=== PATIENT | female | born 1960 | race Caucasian/White ===

== ENCOUNTER → 2019-09-12 | Outpatient (CLI) | payer OTHER ==
[~2019-09-12] MED LIST: AMOXICILLIN500 M2 PO; ATIVAN0.5 MG PO; CYMBALTA60 MG PO; HUMALOG100 U/ML SC; LANTUS100 U/ML SC; METFORMIN500 MG PO; NAPROSYN500 MG PO; REXULTI2 MG PO; TOPROL XL200 MG PO; ZALEPLON10 MG PO; ZITHROMAX Z PA250 MG PO; ZOCOR20 MG PO; [UNRECOGNIZED DRUG - OTHER] PO
== END | disposition home or self-care (01) ==
LOC: LAB 08:53
DX: E11.65 Type 2 diabetes mellitus with hyperglycemia (principal)

== ENCOUNTER → 2019-09-13 | Outpatient (CLI) | payer OTHER | END | disposition home or self-care (01) | LOC: LAB 08:55 | DX: E11.65 Type 2 diabetes mellitus with hyperglycemia (principal) ==

== ENCOUNTER → 2019-09-14 | Outpatient (CLI) | payer OTHER ==
[2019-09-14 09:45] LABS: CHLORIDE 101 mmol/L (98-107); POTASSIUM 3.8 mmol/L (3.5-5.1); SODIUM 135 mmol/L (136-145)
[2019-09-14 10:00] LABS: ALKALINE PHOSPHATASE 99 U/L (45-117); BUN 8 mg/dl (7-24); CHOLESTEROL 130 mg/dL (<200); CREATININE 0.67 mg/dL (0.55-1.02); FREE T4 1.06 ng/dl (0.76-1.46); HDL CHOLESTEROL 43 mg/dl (40-60); LDL CHOLESTEROL 47 mg/dL (9-159); SGOT/AST 36 IU/L (3-35); SGPT/ALT 60 U/L (12-78); TOTAL PROTEIN 7.8 gm/dL (6.4-8.2); TRIGLYCERIDES 198 mg/dl (<150); VLDL CHOLESTEROL 40 mg/dL (6-40)
[2019-09-17 13:07] LABS: ALDOSTERONE/RENIN RATIO 52.1 (0.0-30.0); RENIN ACTIVITY (PLASMA) 0.361 ng/mL/hr (0.167-5.380)
[2019-09-17 19:07] LABS: METANEPHRINE, PLASMA <10 pg/mL (0-62); NORMETANEPHRINE, PLASMA 33 pg/mL (0-145)
== END | disposition home or self-care (01) ==
LOC: LAB 08:39
PROVIDERS: Internal Medicine Endocrinology, Diabetes & Metabolism
DX: E03.9 Hypothyroidism, unspecified (principal); E11.65 Type 2 diabetes mellitus with hyperglycemia; E55.9 Vitamin D deficiency, unspecified

== ENCOUNTER → 2019-11-27 | Outpatient (CLI) | payer OTHER ==
[2019-12-03 04:08] LABS: 24 HR CREATININE URINE 1496 mg/24 hr (.); CORTISOL, FREE, UG/24HR, URINE 26 ug/24 hr (.); CREATININE, URINE 63 mg/dL (.)
[2019-12-03 10:38] LABS: URINE VOLUME 2375 mL
[2019-12-03 10:39] LABS: CORTISOL, FREE URINE 1.1
== END | disposition home or self-care (01) ==
LOC: LAB 15:34
PROVIDERS: Internal Medicine Endocrinology, Diabetes & Metabolism
DX: E11.65 Type 2 diabetes mellitus with hyperglycemia (principal)

== ENCOUNTER 2019-12-23 15:42 | Emergency (ER) | payer OTHER ==
[~2019-12-23] VITALS: Ht 157.4 cm; Wt 81.2 kg
[2019-12-23 16:44] LABS: BASO # 0.1 10*3/uL (0.0-0.1); BASO % 0.6 % (0.0-1.0); EOS # 0.1 10*3/uL (0.0-0.4); EOS % 0.8 % (1.0-4.0); HEMATOCRIT 45.3 % (37.0-47.0); HEMOGLOBIN 15.3 g/dl (12.0-16.0); LYMPH # 2.4 10*3/uL (1.3-4.4); LYMPH % 30.7 % (27.0-41.0); MEAN CELL VOLUME 88.5 fl (81.0-99.0); MEAN CORPUSCULAR HGB 29.9 pg (27.0-31.0); MEAN CORPUSCULAR HGB CONC 33.8 g/dl (33.0-37.0); MEAN PLATELET VOLUME 11.9 fl (9.6-12.3); MONO # 0.4 10*3/uL (0.1-1.0); MONO % 5.4 % (3.0-9.0); NEUT % 62.2 % (47.0-73.0); PLATELET COUNT AUTOMATED 168 10*3/uL (130-400); RED BLOOD COUNT 5.12 10*6/uL (4.10-5.10); RED CELL DISTRI WIDTH 12.4 % (0-14.5)
[2019-12-23 16:53] LABS: INTERNATIONAL NORM RATIO 0.9 (2.0-3.5)
[2019-12-23 17:09] LABS: ALBUMIN 4.1 gm/dl (3.1-4.5); ALKALINE PHOSPHATASE 84 U/L (45-117); BUN 10 mg/dl (7-24); CHLORIDE 103 mmol/L (98-107); CREATININE 0.78 mg/dL (0.55-1.02); POTASSIUM 3.7 mmol/L (3.5-5.1); SGOT/AST 24 IU/L (3-35); SGPT/ALT 37 U/L (12-78); SODIUM 138 mmol/L (136-145); TOTAL PROTEIN 7.8 gm/dL (6.4-8.2); TROPONIN I 0.044 ng/ml (<0.045)
[2019-12-23 18:19] LABS: BILIRUBIN 1+ (NEGATIVE); BLOOD TRACE-LYSED (NEGATIVE); CLARITY SL CLOUDY (CLEAR); COLOR YELLOW (YELLOW); GLUCOSE 3+ (NEGATIVE); KETONE 1+ (NEGATIVE); LEUKO ESTERASE NEGATIVE (NEGATIVE); NITRITE NEGATIVE (NEGATIVE); SPECIFIC GRAVITY 1.025 (1.005-1.030); UROBILINOGEN 0.2 E.U./dl (0.2-1.0)
[2019-12-23 18:20] LABS: MUCOUS 1+; RBC 0-2 rbc/hpf (0-2); WBC 0-2 wbc/hpf (0-5)
[2019-12-23 18:30] VITALS: BP 159/54
== END 2019-12-23 20:00 | disposition home or self-care (01) ==
LOC: ED 15:42
PROVIDERS: Physician Assistant
DX: E11.65 Type 2 diabetes mellitus with hyperglycemia (principal); R00.2 Palpitations; H53.8 Other visual disturbances; I10 Essential (primary) hypertension; E78.00 Pure hypercholesterolemia, unspecified; E11.9 Type 2 diabetes mellitus without complications; Z88.6 Allergy status to analgesic agent; Z88.1 Allergy status to other antibiotic agents; Z79.899 Other long term (current) drug therapy; Z91.041 Radiographic dye allergy status; Z79.4 Long term (current) use of insulin

== ENCOUNTER → 2020-11-10 | Outpatient (CLI) | payer OTHER | END | disposition home or self-care (01) | LOC: COVID19 15:06 | PROVIDERS: ATTEND Nurse Practitioner Family | DX: R09.81 Nasal congestion (principal); Z20.828 Contact with and (suspected) exposure to other viral communicable diseases ==

== ENCOUNTER 2021-09-03 04:07 | Emergency (ER) | payer OTHER ==
[~2021-09-03] VITALS: Ht 157.4 cm; Wt 83.5 kg
[2021-09-03 05:33] LABS: ALBUMIN 3.6 gm/dl (3.1-4.5); ALKALINE PHOSPHATASE 80 U/L (45-117); BUN 15 mg/dl (7-24); CHLORIDE 102 mmol/L (98-107); CREATININE 0.63 mg/dL (0.55-1.02); POTASSIUM 3.7 mmol/L (3.5-5.1); SGOT/AST 29 IU/L (3-35); SGPT/ALT 43 U/L (12-78); SODIUM 136 mmol/L (136-145); TOTAL PROTEIN 7.1 gm/dL (6.4-8.2)
[2021-09-03 06:02] LABS: BASO % 0.3 % (0.0-1.0); EOS # 0.1 10*3/uL (0.0-0.4); EOS % 1.9 % (1.0-4.0); HEMATOCRIT 40.3 % (37.0-47.0); LYMPH # 2.2 10*3/uL (1.3-4.4); LYMPH % 37.8 % (27.0-41.0); MEAN CELL VOLUME 91.2 fl (81.0-99.0); MEAN CORPUSCULAR HGB 30.5 pg (27.0-31.0); MEAN CORPUSCULAR HGB CONC 33.5 g/dl (33.0-37.0); MEAN PLATELET VOLUME 11.9 fl (9.6-12.3); MONO # 0.5 10*3/uL (0.1-1.0); MONO % 7.8 % (3.0-9.0); NEUT % 50.8 % (47.0-73.0); PLATELET COUNT AUTOMATED 152 10*3/uL (130-400); RED BLOOD COUNT 4.42 10*6/uL (4.10-5.10); RED CELL DISTRI WIDTH 12.8 % (0-14.5); WHITE BLOOD COUNT 5.9 10*3/uL (4.8-10.8)
[2021-09-03 07:38] VITALS: BP 147/56
== END 2021-09-03 08:49 | disposition home or self-care (01) ==
LOC: ED 04:07
PROVIDERS: Emergency Medicine
DX: M79.604 Pain in right leg (principal); M79.605 Pain in left leg; Z91.041 Radiographic dye allergy status; Z88.6 Allergy status to analgesic agent; Z88.1 Allergy status to other antibiotic agents; Z79.899 Other long term (current) drug therapy

== ENCOUNTER 2021-10-07 13:54 | Emergency (ER) | payer OTHER ==
[~2021-10-07] VITALS: Wt 83.9 kg
[2021-10-07 14:10] VITALS: BP 153/76
[2021-10-07] MEDS ORDERED: AMOXICILLIN500 M2 PO (14:29)
== END 2021-10-07 14:39 | disposition home or self-care (01) ==
LOC: ED 13:54
DX: J02.9 Acute pharyngitis, unspecified (principal); Z91.041 Radiographic dye allergy status; Z88.6 Allergy status to analgesic agent; Z88.1 Allergy status to other antibiotic agents; Z79.899 Other long term (current) drug therapy

== ENCOUNTER 2021-10-25 12:46 | Emergency (ER) | payer OTHER ==
[~2021-10-25] VITALS: Ht 157.4 cm; Wt 87.1 kg
[2021-10-25 12:53] VITALS: BP 126/62
[2021-10-25 13:52] LABS: BASO % 0.3 % (0.0-1.0); EOS % 0.3 % (1.0-4.0); HEMATOCRIT 42.8 % (37.0-47.0); LYMPH # 1.2 10*3/uL (1.3-4.4); LYMPH % 33.8 % (27.0-41.0); MEAN CELL VOLUME 89.4 fl (81.0-99.0); MEAN CORPUSCULAR HGB 30.1 pg (27.0-31.0); MEAN CORPUSCULAR HGB CONC 33.6 g/dl (33.0-37.0); MEAN PLATELET VOLUME 12.1 fl (9.6-12.3); MONO # 0.4 10*3/uL (0.1-1.0); NEUT # 1.9 10*3/uL (2.3-7.9); NEUT % 54.3 % (47.0-73.0); PLATELET COUNT AUTOMATED 119 10*3/uL (130-400); RED BLOOD COUNT 4.79 10*6/uL (4.10-5.10); RED CELL DISTRI WIDTH 12.7 % (0-14.5); WHITE BLOOD COUNT 3.6 10*3/uL (4.8-10.8)
[2021-10-25 14:05] LABS: ALBUMIN 3.7 gm/dl (3.1-4.5); ALKALINE PHOSPHATASE 80 U/L (45-117); BUN 8 mg/dl (7-24); CHLORIDE 100 mmol/L (98-107); CREATININE 0.68 mg/dL (0.55-1.02); POTASSIUM 3.4 mmol/L (3.5-5.1); SGOT/AST 65 IU/L (3-35); SGPT/ALT 92 U/L (12-78); SODIUM 136 mmol/L (136-145); TOTAL PROTEIN 7.6 gm/dL (6.4-8.2)
== END 2021-10-25 18:35 | disposition home or self-care (01) ==
LOC: ED 12:46
PROVIDERS: Internal Medicine
DX: U07.1 COVID-19 (principal)

== ENCOUNTER → 2021-12-06 | Outpatient (CLI) | payer OTHER | END | disposition home or self-care (01) | LOC: MAMMO 10-31 14:30 → US 11-28 15:00 → MAMMO 12:34 | PROVIDERS: ATTEND Nurse Practitioner Family | DX: R92.1 Mammographic calcification found on diagnostic imaging of breast (principal); R59.0 Localized enlarged lymph nodes; N63.20 Unspecified lump in the left breast, unspecified quadrant ==

== ENCOUNTER 2022-01-18 16:57 | Emergency (ER) | payer OTHER ==
[~2022-01-18] VITALS: Ht 157.4 cm; Wt 88.5 kg
[2022-01-18 21:00] VITALS: BP 135/70
[2022-01-18] MEDS ORDERED: PREDNISONE20 M1 PO (21:32)
[2022-01-18] MEDS ORDERED: METHOCARBAMOL500 M1 PO (21:32)
== END 2022-01-18 22:05 | disposition home or self-care (01) ==
LOC: ED 16:57
DX: M54.42 Lumbago with sciatica, left side (principal); Z91.041 Radiographic dye allergy status; Z88.8 Allergy status to other drugs, medicaments and biological substances; Z88.1 Allergy status to other antibiotic agents; Z79.899 Other long term (current) drug therapy; Z98.890 Other specified postprocedural states; Z90.49 Acquired absence of other specified parts of digestive tract; Z98.51 Tubal ligation status

== ENCOUNTER → 2022-03-06 | Outpatient (CLI) | payer OTHER ==
[~2022-03-06] MED LIST changes: +METHOCARBAMOL500 M1 PO; +PREDNISONE20 M1 PO
== END | disposition home or self-care (01) ==
LOC: US 14:22
PROVIDERS: ATTEND Nurse Practitioner Family
DX: M71.22 Synovial cyst of popliteal space [Baker], left knee (principal); R25.2 Cramp and spasm; M79.604 Pain in right leg; E11.65 Type 2 diabetes mellitus with hyperglycemia; M54.16 Radiculopathy, lumbar region

== ENCOUNTER → 2022-06-22 | Outpatient (CLI) | payer OTHER | END | disposition home or self-care (01) | LOC: RAD 13:35 | PROVIDERS: ATTEND Nurse Practitioner Women's Health | DX: Z13.820 Encounter for screening for osteoporosis (principal); M81.0 Age-related osteoporosis without current pathological fracture ==

== ENCOUNTER 2022-09-16 13:29 | Emergency (ER) | payer OTHER ==
[~2022-09-16] VITALS: Ht 157.4 cm; Wt 85.3 kg
[2022-09-16 13:49] VITALS: BP 151/80
[2022-09-16 14:13] LABS: BASO % 0.4 % (0.0-1.0); EOS # 0.1 10*3/uL (0.0-0.4); EOS % 1.2 % (1.0-4.0); HEMATOCRIT 46.8 % (37.0-47.0); LYMPH # 1.6 10*3/uL (1.3-4.4); LYMPH % 33.3 % (27.0-41.0); MEAN CELL VOLUME 91.9 fl (81.0-99.0); MEAN CORPUSCULAR HGB 30.3 pg (27.0-31.0); MEAN CORPUSCULAR HGB CONC 32.9 g/dl (33.0-37.0); MEAN PLATELET VOLUME 11.3 fl (9.6-12.3); MONO # 0.3 10*3/uL (0.1-1.0); MONO % 6.4 % (3.0-9.0); NEUT # 2.8 10*3/uL (2.3-7.9); NEUT % 58.3 % (47.0-73.0); PLATELET COUNT AUTOMATED 154 10*3/uL (130-400); RED BLOOD COUNT 5.09 10*6/uL (4.10-5.10); RED CELL DISTRI WIDTH 12.9 % (0-14.5); WHITE BLOOD COUNT 4.8 10*3/uL (4.8-10.8)
[2022-09-16 14:31] LABS: ALKALINE PHOSPHATASE 96 U/L (45-117); BUN 9 mg/dl (7-24); CHLORIDE 103 mmol/L (98-107); CREATININE 0.72 mg/dL (0.55-1.02); SGOT/AST 31 IU/L (3-35); SGPT/ALT 50 U/L (12-78); SODIUM 135 mmol/L (136-145); TOTAL PROTEIN 7.9 gm/dL (6.4-8.2)
[2022-09-16] MEDS ORDERED: NEURONTIN300 MG PO (15:31)
== END 2022-09-16 16:02 | disposition home or self-care (01) ==
LOC: ED 13:29
PROVIDERS: Physician Assistant
DX: M79.604 Pain in right leg (principal); M79.605 Pain in left leg; Z98.51 Tubal ligation status; Z98.890 Other specified postprocedural states; Z90.49 Acquired absence of other specified parts of digestive tract; Z79.899 Other long term (current) drug therapy; Z91.041 Radiographic dye allergy status; Z88.8 Allergy status to other drugs, medicaments and biological substances; Z88.1 Allergy status to other antibiotic agents

== ENCOUNTER → 2022-10-11 | Outpatient (CLI) | payer OTHER ==
[~2022-10-11] MED LIST changes: +NEURONTIN300 MG PO
[2022-10-11 11:54] LABS: BASO % 0.4 % (0.0-1.0); EOS # 0.1 10*3/uL (0.0-0.4); EOS % 1.1 % (1.0-4.0); HEMATOCRIT 42.9 % (37.0-47.0); LYMPH # 1.5 10*3/uL (1.3-4.4); LYMPH % 32.2 % (27.0-41.0); MEAN CELL VOLUME 90.5 fl (81.0-99.0); MEAN CORPUSCULAR HGB CONC 33.1 g/dl (33.0-37.0); MEAN PLATELET VOLUME 12.4 fl (9.6-12.3); MONO # 0.3 10*3/uL (0.1-1.0); MONO % 6.9 % (3.0-9.0); NEUT # 2.7 10*3/uL (2.3-7.9); PLATELET COUNT AUTOMATED 153 10*3/uL (130-400); RED BLOOD COUNT 4.74 10*6/uL (4.10-5.10); RED CELL DISTRI WIDTH 12.7 % (0-14.5); WHITE BLOOD COUNT 4.5 10*3/uL (4.8-10.8)
[2022-10-11 12:12] LABS: ALKALINE PHOSPHATASE 71 U/L (46-116); BUN 7 mg/dl (9-23); CHLORIDE 101 mmol/L (98-107); CHOLESTEROL 106 mg/dL (<200); FREE T4 1.22 ng/dl (0.89-1.76); LDL CHOLESTEROL 42 mg/dL (9-159); POTASSIUM 3.8 mmol/L (3.4-5.1); SGPT/ALT 29 U/L (10-49); SODIUM 135 mmol/L (136-145); THYROID STIM HORMONE (HS) 0.971 uIU/ml (0.550-4.780); TOTAL PROTEIN 6.7 gm/dL (6.0-8.0); TRIGLYCERIDES 107 mg/dl (<150)
[2022-10-11 12:47] LABS: VITAMIN D, 25-HYDROXY 49.7 ng/mL (30-100)
[2022-10-12 09:07] LABS: CREATININE,URINE 72.3 mg/dL (Not Estab.)
== END | disposition home or self-care (01) ==
LOC: LAB 11:00
PROVIDERS: ATTEND Internal Medicine
DX: E11.9 Type 2 diabetes mellitus without complications (principal); I10 Essential (primary) hypertension

== ENCOUNTER → 2024-01-06 | Outpatient (CLI) | payer OTHER ==
[2024-01-06 11:29] LABS: BASO % 0.3 % (0.0-1.0); EOS # 0.1 10*3/uL (0.0-0.4); HEMATOCRIT 46.1 % (37.0-47.0); LYMPH # 1.8 10*3/uL (1.3-4.4); LYMPH % 26.1 % (27.0-41.0); MEAN CELL VOLUME 90.4 fl (81.0-99.0); MEAN CORPUSCULAR HGB 29.6 pg (27.0-31.0); MEAN CORPUSCULAR HGB CONC 32.8 g/dl (33.0-37.0); MEAN PLATELET VOLUME 12.6 fl (9.6-12.3); MONO # 0.4 10*3/uL (0.1-1.0); MONO % 5.6 % (3.0-9.0); NEUT # 4.5 10*3/uL (2.3-7.9); NEUT % 66.7 % (47.0-73.0); PLATELET COUNT AUTOMATED 123 10*3/uL (130-400); RED CELL DISTRI WIDTH 12.9 % (0-14.5); WHITE BLOOD COUNT 6.7 10*3/uL (4.8-10.8)
[2024-01-06 12:02] LABS: ALKALINE PHOSPHATASE 95 U/L (46-116); BUN 9 mg/dl (9-23); CHLORIDE 103 mmol/L (98-107); CHOLESTEROL 135 mg/dL (<200); FREE T4 1.43 ng/dl (0.89-1.76); LDL CHOLESTEROL 59 mg/dL (9-159); POTASSIUM 3.8 mmol/L (3.4-5.1); SGPT/ALT 35 U/L (5-49); TOTAL PROTEIN 7.5 gm/dL (6.0-8.0); TRIGLYCERIDES 129 mg/dl (<150)
[2024-01-06 12:19] LABS: VITAMIN D, 25-HYDROXY 36.6 ng/mL (30-100)
== END ==
LOC: LAB 10:56
PROVIDERS: ATTEND Internal Medicine
DX: E11.42 Type 2 diabetes mellitus with diabetic polyneuropathy (principal)

== ENCOUNTER → 2024-02-10 | Outpatient (CLI) | payer OTHER | END | disposition home or self-care (01) | LOC: RAD 01:34 → MAMMO 11:30 | PROVIDERS: ATTEND Internal Medicine | DX: Z12.31 Encounter for screening mammogram for malignant neoplasm of breast (principal); M81.0 Age-related osteoporosis without current pathological fracture ==

== ENCOUNTER 2024-06-14 10:40 | Emergency (ER) | payer OTHER ==
[~2024-06-14] VITALS: Ht 157.4 cm; Wt 89.8 kg
[2024-06-14] MEDS ORDERED: methylPREDNISolone sod succ 125 MG VIAL IM ONE (11:15)
[2024-06-14] MEDS ORDERED: METHOCARBAMOL 500 MG TAB PO ONE (11:15)
[2024-06-14 11:34] LABS: BASO % 0.4 % (0.0-1.0); EOS # 0.1 10*3/uL (0.0-0.4); HEMATOCRIT 44.6 % (37.0-47.0); LYMPH # 1.7 10*3/uL (1.3-4.4); LYMPH % 33.6 % (27.0-41.0); MEAN CELL VOLUME 90.5 fl (81.0-99.0); MEAN CORPUSCULAR HGB CONC 33.2 g/dl (33.0-37.0); MEAN PLATELET VOLUME 11.8 fl (9.6-12.3); MONO # 0.3 10*3/uL (0.1-1.0); MONO % 6.4 % (3.0-9.0); NEUT % 58.2 % (47.0-73.0); PLATELET COUNT AUTOMATED 118 10*3/uL (130-400); RED BLOOD COUNT 4.93 10*6/uL (4.10-5.10); RED CELL DISTRI WIDTH 12.9 % (0-14.5); WHITE BLOOD COUNT 5.1 10*3/uL (4.8-10.8)
[2024-06-14 11:52] LABS: BUN 10 mg/dl (9-23); CHLORIDE 105 mmol/L (98-107); POTASSIUM 3.8 mmol/L (3.4-5.1)
[2024-06-14 12:10] LABS: BILIRUBIN Negative (Negative); BLOOD Negative (Negative); CLARITY Clear (Clear); COLOR Yellow (Yellow); GLUCOSE 3+ (Negative); KETONE Negative (Negative); LEUKO ESTERASE Negative (Negative); NITRITE Negative (Negative); PH 5.5 (4.5-8.0); SPECIFIC GRAVITY >= 1.030 (1.001-1.030); UROBILINOGEN 0.2 E.U./dl (0.0-1.0)
[2024-06-14 12:36] LABS: YEAST 1+
[2024-06-14 12:37] LABS: BACTERIA TRACE; RBC 0-2 rbc/hpf (0-2)
[2024-06-14 12:38] LABS: EPITHELIAL CELLS 0-2
[2024-06-14] MEDS ORDERED: METHOCARBAMOL500 M1 PO (12:42)
[2024-06-14] MEDS ORDERED: PREDNISONE50 MG PO (12:42)
== END 2024-06-14 12:48 | disposition home or self-care (01) ==
LOC: ED 10:40
PROVIDERS: Physician Assistant Medical
DX: M54.42 Lumbago with sciatica, left side (principal); M79.605 Pain in left leg; I10 Essential (primary) hypertension; E11.9 Type 2 diabetes mellitus without complications; F32.A Depression, unspecified; F41.9 Anxiety disorder, unspecified; E78.00 Pure hypercholesterolemia, unspecified; Z91.041 Radiographic dye allergy status; Z88.6 Allergy status to analgesic agent; Z88.8 Allergy status to other drugs, medicaments and biological substances; Z88.1 Allergy status to other antibiotic agents; Z98.890 Other specified postprocedural states; Z98.51 Tubal ligation status; Z90.49 Acquired absence of other specified parts of digestive tract

== ENCOUNTER 2024-08-26 09:15 | Emergency (ER) | payer OTHER ==
[~2024-08-26] VITALS: Ht 157.4 cm; Wt 93.9 kg
[~2024-08-26 09:15] MED LIST changes: +PREDNISONE50 MG PO
[2024-08-26 09:21] VITALS: BP 149/65
[2024-08-26] MEDS ORDERED: CYCLOBENZAPRINE10 MG PO (09:24)
[2024-08-26] MEDS ORDERED: DICLOFENAC SODI50 GM T (09:25)
[2024-08-26] MEDS ORDERED: LISINOPRIL-HCT1 EACH PO (09:25)
[2024-08-26] MEDS ORDERED: TRAZODONE100 MG PO (09:25)
[2024-08-26] MEDS ORDERED: INSULIN LI100 UNIT/3 SQ (09:26)
[2024-08-26] MEDS ORDERED: JARDIANCE25 MG PO (09:27)
[2024-08-26] MEDS ORDERED: HYDROXYZINE PAM25 M1 PO (09:27)
[2024-08-26] MEDS ORDERED: LEVOTHYROXINE125 MCG PO (09:27)
[2024-08-26] MEDS ORDERED: PREGABALIN300 MG PO (09:28)
[2024-08-26] MEDS ORDERED: TRULICITY3 MG/0.5 M SQ (09:28)
[2024-08-26] MEDS ORDERED: VITAMIN D3125 MC1 PO (09:28)
[2024-08-26] MEDS ORDERED: Ketorolac Tromethamine 60 MG/2 ML VIAL IM ONE (11:40)
[2024-08-26] MEDS ORDERED: Acetaminophen/Oxycodone 5 MG/325 MG TABLET PO ONE (11:40)
== END 2024-08-26 12:02 | disposition home or self-care (01) ==
LOC: ED 09:15
DX: M54.42 Lumbago with sciatica, left side (principal); E11.9 Type 2 diabetes mellitus without complications; Z91.041 Radiographic dye allergy status; Z88.6 Allergy status to analgesic agent; Z88.1 Allergy status to other antibiotic agents; Z79.4 Long term (current) use of insulin; Z79.899 Other long term (current) drug therapy; Z98.890 Other specified postprocedural states; Z90.49 Acquired absence of other specified parts of digestive tract; Z98.51 Tubal ligation status

== ENCOUNTER → 2024-09-03 | Outpatient (CLI) | payer OTHER ==
[~2024-09-03] MED LIST changes: +CYCLOBENZAPRINE10 MG PO; +DICLOFENAC SODI50 GM T; +HYDROXYZINE PAM25 M1 PO; +INSULIN LI100 UNIT/3 SQ; +JARDIANCE25 MG PO; +LEVOTHYROXINE125 MCG PO; +LISINOPRIL-HCT1 EACH PO; +PREGABALIN300 MG PO; +TRAZODONE100 MG PO; +TRULICITY3 MG/0.5 M SQ; +VITAMIN D3125 MC1 PO
== END | disposition home or self-care (01) ==
LOC: RAD 10:51
PROVIDERS: ATTEND Internal Medicine
DX: M47.817 Spondylosis without myelopathy or radiculopathy, lumbosacral region (principal); M48.07 Spinal stenosis, lumbosacral region; I10 Essential (primary) hypertension

== ENCOUNTER → 2024-09-10 | Outpatient (CLI) | payer OTHER | END | disposition home or self-care (01) | LOC: LAB 12:59 | PROVIDERS: ATTEND Internal Medicine | DX: E11.42 Type 2 diabetes mellitus with diabetic polyneuropathy (principal) ==

== ENCOUNTER → 2024-10-15 | Outpatient (CLI) | payer OTHER | END | disposition home or self-care (01) | LOC: RAD 12:40 | PROVIDERS: ATTEND Internal Medicine | DX: M25.551 Pain in right hip (principal); M25.552 Pain in left hip ==

== ENCOUNTER 2024-10-25 11:38 | Emergency (ER) | payer OTHER ==
[~2024-10-25] VITALS: Ht 157.4 cm; Wt 92.5 kg
[2024-10-25 11:45] VITALS: BP 199/68
[2024-10-25 12:37] LABS: BASO % 0.3 % (0.0-1.0); EOS % 0.7 % (1.0-4.0); HEMATOCRIT 48.2 % (37.0-47.0); MEAN CELL VOLUME 91.1 fl (81.0-99.0); MEAN CORPUSCULAR HGB 29.9 pg (27.0-31.0); MEAN CORPUSCULAR HGB CONC 32.8 g/dl (33.0-37.0); MEAN PLATELET VOLUME 11.2 fl (9.6-12.3); MONO # 0.4 10*3/uL (0.1-1.0); MONO % 6.4 % (3.0-9.0); NEUT # 4.3 10*3/uL (2.3-7.9); PLATELET COUNT AUTOMATED 141 10*3/uL (130-400); RED BLOOD COUNT 5.29 10*6/uL (4.10-5.10); RED CELL DISTRI WIDTH 12.4 % (0-14.5)
[2024-10-25] MEDS ORDERED: Ondansetron Hydrochloride 4 MG TAB SL ONE (12:40)
[2024-10-25 12:47] LABS: ACT PARTIAL THROMBO TIME 26.2 SECONDS (20.0-32.1)
[2024-10-25 13:00] LABS: ALKALINE PHOSPHATASE 82 U/L (46-116); BUN 10 mg/dl (9-23); CHLORIDE 101 mmol/L (98-107); SGPT/ALT 42 U/L (5-49); TOTAL PROTEIN 7.7 gm/dL (6.0-8.0)
[2024-10-25] MEDS ORDERED: Ondansetron4 MG SL (15:18)
== END 2024-10-25 15:01 | disposition home or self-care (01) ==
LOC: ED 11:38
PROVIDERS: Internal Medicine
DX: B34.9 Viral infection, unspecified (principal); Z20.822 Contact with and (suspected) exposure to COVID-19; R11.0 Nausea; E11.9 Type 2 diabetes mellitus without complications; I10 Essential (primary) hypertension; R10.2 Pelvic and perineal pain; F32.A Depression, unspecified; F41.9 Anxiety disorder, unspecified; E78.00 Pure hypercholesterolemia, unspecified; Z91.041 Radiographic dye allergy status; Z88.6 Allergy status to analgesic agent; Z88.5 Allergy status to narcotic agent; Z88.1 Allergy status to other antibiotic agents; Z98.890 Other specified postprocedural states

== ENCOUNTER 2024-10-27 20:11 | Emergency (ER) | payer OTHER ==
[~2024-10-27] VITALS: Ht 157.4 cm; Wt 79.4 kg
[~2024-10-27 20:11] MED LIST changes: +Ondansetron4 MG SL
[2024-10-27 20:23] VITALS: BP 178/64
[2024-10-27] MEDS ORDERED: Ketorolac Tromethamine 60 MG/2 ML VIAL IM ONE (20:25)
[2024-10-27] MEDS ORDERED: TIZANIDINE HYDROCHLORIDE 2 MG PO ONE (20:25)
[2024-10-27] MEDS ORDERED: Dexamethasone Sodium Phospha 20 MG/5 ML VIAL IM ONE (20:25)
[2024-10-27] MEDS ORDERED: HYDROmorphONE Hydrochloride 0.5 MG/0.5 ML SYRINGE IM ONE (21:20)
[2024-10-27] MEDS ORDERED: MELOXICAM15 MG PO (22:05)
[2024-10-27] MEDS ORDERED: CYCLOBENZAPRINE5 M3 PO (22:05)
== END 2024-10-27 22:33 | disposition home or self-care (01) ==
LOC: ED 20:11
DX: M54.50 Low back pain, unspecified (principal); M62.830 Muscle spasm of back; Z91.041 Radiographic dye allergy status; Z88.6 Allergy status to analgesic agent; Z88.1 Allergy status to other antibiotic agents; Z79.899 Other long term (current) drug therapy; Z79.4 Long term (current) use of insulin; Z98.890 Other specified postprocedural states; Z90.49 Acquired absence of other specified parts of digestive tract

== ENCOUNTER → 2024-11-30 | Outpatient (CLI) | payer OTHER ==
[~2024-11-30] MED LIST changes: +CYCLOBENZAPRINE5 M3 PO; +MELOXICAM15 MG PO
== END | disposition home or self-care (01) ==
LOC: LAB 15:52
PROVIDERS: ATTEND Nurse Practitioner Acute Care
DX: M54.16 Radiculopathy, lumbar region (principal); M21.371 Foot drop, right foot; M21.372 Foot drop, left foot; R29.818 Other symptoms and signs involving the nervous system; M54.50 Low back pain, unspecified

== ENCOUNTER 2024-12-26 13:20 | Emergency (ER) | payer OTHER ==
[~2024-12-26] VITALS: Ht 157.4 cm; Wt 92.5 kg
[2024-12-26 13:51] VITALS: BP 155/64
[2024-12-26] MEDS ORDERED: traMADol Hydrochloride 50 MG TAB PO ONE (14:00)
[2024-12-26] MEDS ORDERED: HYDROCODONE-AC1 EAC1 PO (14:41)
== END 2024-12-26 14:44 | disposition home or self-care (01) ==
LOC: ED 13:20
DX: S42.292A Other displaced fracture of upper end of left humerus, initial encounter for closed fracture (principal); I10 Essential (primary) hypertension; E78.00 Pure hypercholesterolemia, unspecified; E11.9 Type 2 diabetes mellitus without complications; F32.A Depression, unspecified; F41.9 Anxiety disorder, unspecified; Z79.899 Other long term (current) drug therapy; Z88.8 Allergy status to other drugs, medicaments and biological substances; Z91.041 Radiographic dye allergy status; Z98.51 Tubal ligation status; Z98.890 Other specified postprocedural states; W01.0XXA Fall on same level from slipping, tripping and stumbling without subsequent striking against object, initial encounter; Y93.89 Activity, other specified; Y92.89 Other specified places as the place of occurrence of the external cause; Y99.8 Other external cause status

== ENCOUNTER → 2025-01-11 | Outpatient (CLI) | payer OTHER ==
[~2025-01-11] MED LIST changes: +HYDROCODONE-AC1 EAC1 PO
== END | disposition home or self-care (01) ==
LOC: ORTHO 01:02
PROVIDERS: ATTEND Orthopaedic Surgery
DX: S42.352A Displaced comminuted fracture of shaft of humerus, left arm, initial encounter for closed fracture (principal); X58.XXXA Exposure to other specified factors, initial encounter; Y93.89 Activity, other specified; Y92.89 Other specified places as the place of occurrence of the external cause; Y99.8 Other external cause status

== ENCOUNTER → 2025-02-22 | Outpatient (CLI) | payer OTHER | END | disposition home or self-care (01) | LOC: ORTHO 01:17 | PROVIDERS: ATTEND Orthopaedic Surgery | DX: S42.352A Displaced comminuted fracture of shaft of humerus, left arm, initial encounter for closed fracture (principal); X58.XXXA Exposure to other specified factors, initial encounter; Y93.89 Activity, other specified; Y92.89 Other specified places as the place of occurrence of the external cause; Y99.8 Other external cause status ==

== ENCOUNTER → 2025-03-09 | Outpatient (CLI) | payer OTHER | END | disposition home or self-care (01) | LOC: LAB 03-08 15:00 | PROVIDERS: ATTEND Internal Medicine | DX: E11.9 Type 2 diabetes mellitus without complications (principal) ==

== ENCOUNTER → 2025-03-22 | Outpatient (CLI) | payer OTHER | END | disposition home or self-care (01) | LOC: ORTHO 00:47 | PROVIDERS: ATTEND Orthopaedic Surgery | DX: S42.352D Displaced comminuted fracture of shaft of humerus, left arm, subsequent encounter for fracture with routine healing (principal); X58.XXXD Exposure to other specified factors, subsequent encounter ==

== ENCOUNTER → 2025-05-03 | Outpatient (CLI) | payer OTHER ==
[~2025-05-03] MED LIST changes: +SODIUM CHLORIDE 0.9% 1,000 ML IV ONE
== END | disposition home or self-care (01) ==
LOC: ORTHO 03:04
PROVIDERS: ATTEND Orthopaedic Surgery
DX: S42.352D Displaced comminuted fracture of shaft of humerus, left arm, subsequent encounter for fracture with routine healing (principal); X58.XXXD Exposure to other specified factors, subsequent encounter

== ENCOUNTER → 2025-06-21 | Outpatient (CLI) | payer OTHER ==
[~2025-06-21] MED LIST changes: -SODIUM CHLORIDE 0.9% 1,000 ML IV ONE
== END | disposition home or self-care (01) ==
LOC: MRI 14:51
PROVIDERS: ATTEND Orthopaedic Surgery
DX: S42.352A Displaced comminuted fracture of shaft of humerus, left arm, initial encounter for closed fracture (principal); M75.102 Unspecified rotator cuff tear or rupture of left shoulder, not specified as traumatic; M19.012 Primary osteoarthritis, left shoulder; X58.XXXA Exposure to other specified factors, initial encounter; Y93.89 Activity, other specified; Y92.89 Other specified places as the place of occurrence of the external cause; Y99.8 Other external cause status

== ENCOUNTER → 2025-07-21 | Outpatient (CLI) | payer OTHER ==
[2025-07-21 15:19] LABS: BASO # 0.0 10*3/uL (0.0-0.1); BASO % 0.4 % (0.0-1.0); EOS # 0.1 10*3/uL (0.0-0.4); EOS % 1.0 % (1.0-4.0); MEAN CELL VOLUME 87.2 fl (81.0-99.0); MEAN CORPUSCULAR HGB 30.1 pg (27.0-31.0); MEAN PLATELET VOLUME 12.2 fl (9.6-12.3); MONO # 0.5 10*3/uL (0.1-1.0); MONO % 7.7 % (3.0-9.0); NEUT # 4.0 10*3/uL (2.3-7.9); NEUT % 57.1 % (47.0-73.0); NUCLEATED RED BLOOD CELL 0.0 % (0.0-0.0); NUCLEATED RED BLOOD CELL 0.0 10*3/uL (0.0-0.0); PLATELET COUNT AUTOMATED 171 10*3/uL (130-400); RED CELL DISTRI WIDTH 12.5 % (0-14.5)
[2025-07-21 15:50] LABS: BUN 13 mg/dl (9-23); FREE T4 1.82 ng/dl (0.89-1.76); LDL CHOLESTEROL 80 mg/dL (9-159); SGPT/ALT 56 U/L (5-49)
[2025-07-21 16:02] LABS: VITAMIN D, 25-HYDROXY 64.9 ng/mL (30-100)
== END | disposition home or self-care (01) ==
LOC: LAB 14:36
PROVIDERS: ATTEND Internal Medicine
DX: E11.42 Type 2 diabetes mellitus with diabetic polyneuropathy (principal)